=== PATIENT | female | born 1980 | race Caucasian/White ===

== ENCOUNTER 2020-12-03 14:21 | Inpatient (IN) | payer MEDICAID ==
[~2020-12-03] VITALS: Ht 160 cm; Wt 104.5 kg
[2020-12-03] MEDS: LACTATED RINGERS 1,000 ML IV PRN (15:10)
[2020-12-03] MEDS ORDERED: MAGNESIUM SULF. PMX 20GM/500ML 500 ML IV ONE ×2 (15:23→22:56)
[2020-12-03] MEDS ORDERED: BETAMETHASONE 6 MG/ML, 5ML IM SCH (15:30)
[2020-12-03] MEDS ORDERED: MAGNESIUM SULF. PMX 20GM/500ML 500 ML IV SCH (15:30)
[2020-12-03 15:49] LABS: BASOPHILS % (AUTO) 0 % (0-1); EOSINOPHILS % (AUTO) 0 % (1-7); LYMPHOCYTES % (AUTO) 14 % (22-44); MEAN CORPUSCULAR HEMOGLOBIN 27.7 pg (27.0-34.8); MEAN CORPUSCULAR HGB CONC 33.6 g/dL (32.4-35.8); MEAN PLATELET VOLUME 10.6 fL (7.4-10.4); MONOCYTES % (AUTO) 2 % (2-9); NEUTROPHILS % (AUTO) 83 % (42-75); PLATELET COUNT 222 x10^3/uL (130-400); RED BLOOD COUNT 4.61 x10^6/uL (3.82-5.3)
[2020-12-03 16:00] LABS: ALBUMIN 2.8 g/dL (3.4-5.0); ANION GAP 10 mmol/L (5-15); CALCIUM 8.9 mg/dL (8.5-10.1); CHLORIDE 107 mmol/L (98-107); CREATININE 0.56 mg/dL (0.55-1.02)
[2020-12-03 16:03] LABS: ALANINE AMINOTRANSFERASE 23 U/L (12-78); ALKALINE PHOSPHATASE 108 U/L (45-117); BILIRUBIN,TOTAL 0.3 mg/dL (0.2-1.0); TOTAL PROTEIN 7.5 g/dL (6.4-8.2)
[2020-12-03 16:09] LABS: MICROSCOPIC INDICATED
[2020-12-03 16:26] LABS: CREATININE,URINE RANDOM 95.1 mg/dL
[2020-12-03] MEDS ORDERED: ACETAMINOPHEN 325 MG TABLET ONE (18:39)
[2020-12-03] MEDS: ACETAMINOPHEN 325 MG TABLET PO PRN (18:42)
[2020-12-03] MEDS: MAGNESIUM SULF. PMX 20GM/500ML 500 ML IV SCH ×2 (19:20→23:28)
[2020-12-03 20:59] LABS: MICROSCOPIC AUTO
[2020-12-03 21:26] LABS: AMPHETAMINE SCREEN, URINE Negative (Negative); BARBITURATE SCREEN, URINE Negative (Negative); BENZODIAZEPINE SCREEN, URINE Negative (Negative); CANNABINOID SCREEN, URINE Negative (Negative); COCAINE SCREEN, URINE Negative (Negative); METHADONE SCREEN, URINE Negative (Negative); OPIATE SCREEN, URINE Negative (Negative)
[2020-12-04 05:41] LABS: BASOPHILS % (AUTO) 0 % (0-1); EOSINOPHILS % (AUTO) 0 % (1-7); LYMPHOCYTES % (AUTO) 14 % (22-44); MEAN CORPUSCULAR HEMOGLOBIN 26.8 pg (27.0-34.8); MEAN CORPUSCULAR HGB CONC 32.6 g/dL (32.4-35.8); MEAN PLATELET VOLUME 10.8 fL (7.4-10.4); MONOCYTES % (AUTO) 5 % (2-9); NEUTROPHILS % (AUTO) 81 % (42-75); PLATELET COUNT 233 x10^3/uL (130-400); RED BLOOD COUNT 4.37 x10^6/uL (3.82-5.3); RED CELL DISTRIBUTION WIDTH 14.2 % (9.6-15.2)
[2020-12-04 05:47] LABS: ALANINE AMINOTRANSFERASE 23 U/L (12-78); ALBUMIN 2.7 g/dL (3.4-5.0); ANION GAP 10 mmol/L (5-15); CALCIUM 7.7 mg/dL (8.5-10.1); CHLORIDE 106 mmol/L (98-107)
[2020-12-04 05:49] LABS: ALKALINE PHOSPHATASE 98 U/L (45-117); BILIRUBIN,TOTAL 0.2 mg/dL (0.2-1.0); CREATININE 0.62 mg/dL (0.55-1.02); TOTAL PROTEIN 6.9 g/dL (6.4-8.2)
[2020-12-04] MEDS: ACETAMINOPHEN 325 MG TABLET PO PRN ×2 (07:12→12:07)
[2020-12-04] MEDS ORDERED: MAGNESIUM SULF. PMX 20GM/500ML 500 ML IV ONE (07:22)
[2020-12-04] MEDS: MAGNESIUM SULF. PMX 20GM/500ML 500 ML IV SCH ×2 (07:24→15:37)
[2020-12-04] MEDS ORDERED: LABETALOL 100 MG TABLET ONE ×2 (07:51→17:59)
[2020-12-04] MEDS: LABETALOL 100 MG TABLET PO SCH ×2 (08:00→15:40)
[2020-12-04] MEDS ORDERED: NEWBORN KIT ONE (15:54)
[2020-12-04] MEDS ORDERED: METOCLOPRAMIDE 5 MG/ML, 2ML ONE (16:10)
[2020-12-04] MEDS ORDERED: SODIUM CITRATE/CITRIC ACID 15 ML UDC ONE (16:11)
[2020-12-04] MEDS ORDERED: LABETALOL 200 MG TABLET PO SCH (18:00)
[2020-12-04] MEDS ORDERED: LABETALOL 100 MG TABLET PO ONE (18:00)
[2020-12-04] MEDS ORDERED: OXYcodone/APAP 5/325MG TABLET ONE (18:04)
[2020-12-04] MEDS: OXYcodone/APAP 5/325MG TABLET PO PRN (18:07)
[2020-12-05] MEDS: LABETALOL 200 MG TABLET PO SCH ×3 (00:10→16:04)
[2020-12-05] MEDS ORDERED: MAGNESIUM SULF. PMX 20GM/500ML 500 ML IV ONE ×2 (01:40→11:23)
[2020-12-05] MEDS: MAGNESIUM SULF. PMX 20GM/500ML 500 ML IV SCH ×3 (01:42→22:15)
[2020-12-05 06:39] LABS: BASOPHILS % (AUTO) 0 % (0-1); EOSINOPHILS % (AUTO) 0 % (1-7); LYMPHOCYTES % (AUTO) 14 % (22-44); MEAN CORPUSCULAR HEMOGLOBIN 26.7 pg (27.0-34.8); MEAN CORPUSCULAR HGB CONC 32.1 g/dL (32.4-35.8); MEAN PLATELET VOLUME 10.7 fL (7.4-10.4); MONOCYTES % (AUTO) 7 % (2-9); NEUTROPHILS % (AUTO) 79 % (42-75); PLATELET COUNT 245 x10^3/uL (130-400); RED BLOOD COUNT 4.26 x10^6/uL (3.82-5.3); RED CELL DISTRIBUTION WIDTH 14.2 % (9.6-15.2)
[2020-12-05 06:49] LABS: ALANINE AMINOTRANSFERASE 26 U/L (12-78); ALBUMIN 2.5 g/dL (3.4-5.0); ANION GAP 8 mmol/L (5-15); CALCIUM 6.9 mg/dL (8.5-10.1); CHLORIDE 106 mmol/L (98-107); CREATININE 0.53 mg/dL (0.55-1.02)
[2020-12-05 06:52] LABS: ALKALINE PHOSPHATASE 90 U/L (45-117); BILIRUBIN,TOTAL 0.2 mg/dL (0.2-1.0); TOTAL PROTEIN 6.8 g/dL (6.4-8.2)
[2020-12-05] MEDS ORDERED: OXYcodone 5 MG/5 ML ORAL.SOL UDC PO PRN (10:00)
[2020-12-05] MEDS ORDERED: FENTANYL PF 100 MCG/2ML IV PRN (10:00)
[2020-12-05] MEDS ORDERED: ALBUTEROL SULFATE 2.5 MG/3 ML NPPB PRN (10:00)
[2020-12-05] MEDS ORDERED: METOPROLOL 1 MG/ML, 5ML IV PRN (10:00)
[2020-12-05] MEDS ORDERED: LABETALOL 5MG/ML, 20ML IV PRN (10:00)
[2020-12-05] MEDS ORDERED: MIDAZOLAM 1 MG/ML, 2ML IV PRN (10:00)
[2020-12-05] MEDS ORDERED: EPHEDRINE 50 MG/ML, 1ML IVPush PRN (10:00)
[2020-12-05] MEDS ORDERED: ONDANSETRON 2MG/ML, 2ML IVPush PRN (10:00)
[2020-12-05] MEDS ORDERED: PROMETHAZINE 25 MG/ML, 1ML IV PRN (10:00)
[2020-12-05] MEDS ORDERED: HYDROcodone/APAP 7.5-325MG/15ML UDC PO PRN (10:00)
[2020-12-05] MEDS ORDERED: MEPERIDINE/PF 25MG/0.5ML IVPush PRN (10:00)
[2020-12-05] MEDS: LACTATED RINGERS 1,000 ML IV PRN (11:26)
[2020-12-05] MEDS ORDERED: OXYTOCIN 30U/ 0.9% NaCL 500ML 500 ML ONE (12:56)
[2020-12-05] MEDS ORDERED: PHENYLEPHRINE 10 MG/ML ONE (17:10)
[2020-12-05] MEDS ORDERED: OXYTOCIN 10 UNITS/ML, 1ML ONE (17:10)
[2020-12-05] MEDS ORDERED: FENTANYL PF 100 MCG/2ML ONE (17:10)
[2020-12-05] MEDS ORDERED: DEXAMETHASONE 4 MG/ML, 1ML ONE (17:10)
[2020-12-05] MEDS ORDERED: EPHEDRINE 50 MG/ML, 1ML ONE (17:10)
[2020-12-05] MEDS ORDERED: ONDANSETRON 2MG/ML, 2ML ONE (17:10)
[2020-12-05] MEDS ORDERED: KETOROLAC 30 MG/1 ML ONE (17:10)
[2020-12-05] MEDS ORDERED: CEFAZOLIN 1,000 MG ONE (17:10)
[2020-12-05] MEDS ORDERED: LACTATED RINGERS 1,000 ML IVBOLUS ONE (17:30)
[2020-12-05] MEDS ORDERED: SODIUM CITRATE/CITRIC ACID 30 ML UDC PO ONE (17:30)
[2020-12-05] MEDS ORDERED: ONDANSETRON 2MG/ML, 2ML IVPush ONE (17:30)
[2020-12-05] MEDS ORDERED: METOCLOPRAMIDE 5 MG/ML, 2ML IV ONE (17:30)
[2020-12-05] MEDS ORDERED: D5%-0.9% NACL 1,000 ML IV SCH (18:00)
[2020-12-05] MEDS ORDERED: HYDROmorphone 2 MG/ML, 1ML ONE (21:51)
[2020-12-05] MEDS ORDERED: OXYcodone IR 5MG TABLET PO PRN (22:30)
[2020-12-05] MEDS ORDERED: ONDANSETRON 2MG/ML, 2ML IV PRN (22:30)
[2020-12-05] MEDS ORDERED: OXYcodone/APAP 5/325MG TABLET PO PRN (22:30)
[2020-12-05] MEDS ORDERED: MISOPROSTOL 200 MCG TABLET SL PRN (22:30)
[2020-12-05] MEDS ORDERED: LACTATED RINGERS 1,000 ML IV SCH ×2 (22:30)
[2020-12-05] MEDS ORDERED: CARBOPROST TROMETHAMINE 250 MCG/ML, 1ML IM PRN (22:30)
[2020-12-05] MEDS ORDERED: ACETAMINOPHEN 325 MG TABLET PO PRN (22:30)
[2020-12-05] MEDS ORDERED: OXYTOCIN 30U/ 0.9% NaCL 500ML 500 ML IV SCH (22:30)
[2020-12-05] MEDS: hydrALAzine 20 MG/ML, 1ML IV PRN ×2 (23:26→23:52)
[2020-12-05] MEDS: HYDROmorphone 2 MG/ML, 1ML IVPush PRN ×2 (23:26→23:43)
[2020-12-06] MEDS: hydrALAzine 20 MG/ML, 1ML IV PRN (00:16)
[2020-12-06 00:25] LABS: BASOPHILS % (AUTO) 0 % (0-1); EOSINOPHILS % (AUTO) 0 % (1-7); LYMPHOCYTES % (AUTO) 8 % (22-44); MEAN CORPUSCULAR HEMOGLOBIN 26.5 pg (27.0-34.8); MEAN CORPUSCULAR HGB CONC 31.6 g/dL (32.4-35.8); MEAN PLATELET VOLUME 10.7 fL (7.4-10.4); MONOCYTES % (AUTO) 6 % (2-9); NEUTROPHILS % (AUTO) 86 % (42-75); PLATELET COUNT 194 x10^3/uL (130-400); RED CELL DISTRIBUTION WIDTH 14.2 % (9.6-15.2)
[2020-12-06] MEDS: LABETALOL 200 MG TABLET PO SCH ×8 (00:43→23:54)
[2020-12-06 05:31] LABS: CHLORIDE 103 mmol/L (98-107)
[2020-12-06 06:22] LABS: ALANINE AMINOTRANSFERASE 26 U/L (12-78); ALBUMIN 2.4 g/dL (3.4-5.0); ALKALINE PHOSPHATASE 86 U/L (45-117); ANION GAP 7 mmol/L (5-15); BILIRUBIN,TOTAL 0.2 mg/dL (0.2-1.0); CALCIUM 6.8 mg/dL (8.5-10.1); CREATININE 0.48 mg/dL (0.55-1.02); TOTAL PROTEIN 6.5 g/dL (6.4-8.2)
[2020-12-06 06:24] LABS: BASOPHILS % (AUTO) 0 % (0-1); EOSINOPHILS % (AUTO) 0 % (1-7); LYMPHOCYTES % (AUTO) 11 % (22-44); MEAN CORPUSCULAR HEMOGLOBIN 26.6 pg (27.0-34.8); MEAN CORPUSCULAR HGB CONC 31.9 g/dL (32.4-35.8); MEAN PLATELET VOLUME 10.3 fL (7.4-10.4); MONOCYTES % (AUTO) 10 % (2-9); NEUTROPHILS % (AUTO) 80 % (42-75); PLATELET COUNT 231 x10^3/uL (130-400); RED BLOOD COUNT 4.25 x10^6/uL (3.82-5.3); RED CELL DISTRIBUTION WIDTH 14.2 % (9.6-15.2)
[2020-12-06] MEDS ORDERED: IBUPROFEN 600 MG TABLET ONE (06:42)
[2020-12-06] MEDS: IBUPROFEN 600 MG TABLET PO PRN ×3 (06:43→21:59)
[2020-12-06] MEDS: MAGNESIUM SULF. PMX 20GM/500ML 500 ML IV SCH ×2 (07:58→18:41)
[2020-12-06] MEDS: PRENATAL VIT/IRON/FA 1 EACH TABLET PO SCH (09:00)
[2020-12-06] MEDS: OXYcodone/APAP 5/325MG TABLET PO PRN ×2 (16:04→23:54)
[2020-12-06] MEDS ORDERED: hydrALAzine 20 MG/ML, 1ML IV ONE (17:00)
[2020-12-06] MEDS: SIMETHICONE 80 MG CHEW TAB PO PRN (21:59)
[2020-12-06] MEDS: DOCUSATE 100 MG CAPSULE PO PRN (22:38)
[2020-12-06 23:51] VITALS: BP 130/79
[2020-12-07 03:48] VITALS: BP_SYST 156; BP_SYST 168; BP_DIAS 108; BP_DIAS 98
[2020-12-07] MEDS: IBUPROFEN 600 MG TABLET PO PRN ×2 (03:53→19:40)
[2020-12-07] MEDS: SIMETHICONE 80 MG CHEW TAB PO PRN (03:53)
[2020-12-07] MEDS: OXYcodone/APAP 5/325MG TABLET PO PRN (06:00)
[2020-12-07 07:26] LABS: BASOPHILS % (AUTO) 0 % (0-1); EOSINOPHILS % (AUTO) 0 % (1-7); LYMPHOCYTES % (AUTO) 20 % (22-44); MEAN CORPUSCULAR HEMOGLOBIN 27.3 pg (27.0-34.8); MEAN CORPUSCULAR HGB CONC 32.8 g/dL (32.4-35.8); MEAN PLATELET VOLUME 10.2 fL (7.4-10.4); MONOCYTES % (AUTO) 11 % (2-9); NEUTROPHILS % (AUTO) 68 % (42-75); PLATELET COUNT 205 x10^3/uL (130-400); RED CELL DISTRIBUTION WIDTH 14.2 % (9.6-15.2)
[2020-12-07 07:38] LABS: ALANINE AMINOTRANSFERASE 22 U/L (12-78); ALBUMIN 2.1 g/dL (3.4-5.0); ANION GAP 6 mmol/L (5-15); CALCIUM 7.5 mg/dL (8.5-10.1); CHLORIDE 110 mmol/L (98-107); CREATININE 0.52 mg/dL (0.55-1.02)
[2020-12-07 07:40] LABS: ALKALINE PHOSPHATASE 74 U/L (45-117); BILIRUBIN,TOTAL 0.3 mg/dL (0.2-1.0); TOTAL PROTEIN 5.7 g/dL (6.4-8.2)
[2020-12-07 07:55] VITALS: BP 173/100
[2020-12-07] MEDS ORDERED: LABETALOL 200 MG TABLET PO SCH ×2 (08:00)
[2020-12-07] MEDS: PRENATAL VIT/IRON/FA 1 EACH TABLET PO SCH (08:12)
[2020-12-07] MEDS: DOCUSATE 100 MG CAPSULE PO PRN (08:12)
[2020-12-07] MEDS ORDERED: hydrALAzine 20 MG/ML, 1ML ONE ×2 (08:25→21:27)
[2020-12-07] MEDS ORDERED: hydrALAzine 20 MG/ML, 1ML IV ONE ×2 (08:30→21:30)
[2020-12-07] MEDS ORDERED: LABETALOL 100 MG TABLET PO ONE (08:30)
[2020-12-07 10:34] LABS: BASOPHILS % (AUTO) 0 % (0-1); EOSINOPHILS % (AUTO) 0 % (1-7); LYMPHOCYTES % (AUTO) 19 % (22-44); MEAN CORPUSCULAR HEMOGLOBIN 26.8 pg (27.0-34.8); MEAN CORPUSCULAR HGB CONC 32.3 g/dL (32.4-35.8); MEAN PLATELET VOLUME 10.4 fL (7.4-10.4); MONOCYTES % (AUTO) 12 % (2-9); NEUTROPHILS % (AUTO) 68 % (42-75); PLATELET COUNT 188 x10^3/uL (130-400); RED BLOOD COUNT 4.06 x10^6/uL (3.82-5.3); RED CELL DISTRIBUTION WIDTH 14.5 % (9.6-15.2)
[2020-12-07 10:44] LABS: ALANINE AMINOTRANSFERASE 24 U/L (12-78); ALBUMIN 2.2 g/dL (3.4-5.0); ANION GAP 8 mmol/L (5-15); CALCIUM 8.5 mg/dL (8.5-10.1); CHLORIDE 109 mmol/L (98-107); CREATININE 0.48 mg/dL (0.55-1.02)
[2020-12-07 10:47] LABS: ALKALINE PHOSPHATASE 81 U/L (45-117); BILIRUBIN,TOTAL 0.2 mg/dL (0.2-1.0); TOTAL PROTEIN 6.1 g/dL (6.4-8.2)
[2020-12-07] MEDS ORDERED: DIPHENHYDRAMINE 25 MG CAPSULE PO STA (11:36)
[2020-12-07] MEDS ORDERED: DIPHENHYDRAMINE 25 MG CAPSULE ONE (11:36)
[2020-12-07] MEDS: LABETALOL 300 MG TABLET PO SCH ×2 (14:00→21:11)
[2020-12-07 22:05] VITALS: BP 154/90
[2020-12-07] MEDS ORDERED: MAGNESIUM SULF. PMX 20GM/500ML 500 ML IV ONE (22:23)
[2020-12-07] MEDS ORDERED: MAGNESIUM SULFATE PMX 4GM/100M 100 ML IVPB ONE (22:30)
[2020-12-07] MEDS: MAGNESIUM SULF. PMX 20GM/500ML 500 ML IV SCH (23:23)
[2020-12-08] MEDS: ACETAMINOPHEN 325 MG TABLET PO PRN (04:20)
[2020-12-08] MEDS: LABETALOL 300 MG TABLET PO SCH ×3 (05:34→22:00)
[2020-12-08 06:18] LABS: BASOPHILS % (AUTO) 0 % (0-1); EOSINOPHILS % (AUTO) 1 % (1-7); LYMPHOCYTES % (AUTO) 22 % (22-44); MEAN CORPUSCULAR HEMOGLOBIN 27.4 pg (27.0-34.8); MEAN CORPUSCULAR HGB CONC 32.8 g/dL (32.4-35.8); MEAN PLATELET VOLUME 10.5 fL (7.4-10.4); MONOCYTES % (AUTO) 11 % (2-9); NEUTROPHILS % (AUTO) 66 % (42-75); PLATELET COUNT 221 x10^3/uL (130-400); RED BLOOD COUNT 4.22 x10^6/uL (3.82-5.3); RED CELL DISTRIBUTION WIDTH 14.4 % (9.6-15.2)
[2020-12-08 06:34] LABS: CHLORIDE 105 mmol/L (98-107)
[2020-12-08 06:59] LABS: ALANINE AMINOTRANSFERASE 29 U/L (12-78); ALBUMIN 2.3 g/dL (3.4-5.0); ALKALINE PHOSPHATASE 86 U/L (45-117); ANION GAP 10 mmol/L (5-15); BILIRUBIN,TOTAL 0.3 mg/dL (0.2-1.0); CALCIUM 8.1 mg/dL (8.5-10.1); TOTAL PROTEIN 6.6 g/dL (6.4-8.2)
[2020-12-08] MEDS: PRENATAL VIT/IRON/FA 1 EACH TABLET PO SCH (08:40)
[2020-12-08] MEDS: IBUPROFEN 600 MG TABLET PO PRN ×2 (08:40→20:33)
[2020-12-08] MEDS: MAGNESIUM SULF. PMX 20GM/500ML 500 ML IV SCH (10:10)
[2020-12-09] MEDS ORDERED: hydrALAzine 20 MG/ML, 1ML IV ONE
[2020-12-09 05:41] LABS: BASOPHILS % (AUTO) 0 % (0-1); EOSINOPHILS % (AUTO) 2 % (1-7); LYMPHOCYTES % (AUTO) 24 % (22-44); MEAN CORPUSCULAR HEMOGLOBIN 27.5 pg (27.0-34.8); MEAN CORPUSCULAR HGB CONC 32.9 g/dL (32.4-35.8); MEAN PLATELET VOLUME 10.6 fL (7.4-10.4); MONOCYTES % (AUTO) 9 % (2-9); NEUTROPHILS % (AUTO) 64 % (42-75); PLATELET COUNT 231 x10^3/uL (130-400); RED BLOOD COUNT 3.94 x10^6/uL (3.82-5.3); RED CELL DISTRIBUTION WIDTH 14.5 % (9.6-15.2)
[2020-12-09] MEDS: LABETALOL 200 MG TABLET PO SCH ×3 (05:51→21:59)
[2020-12-09 05:54] LABS: CHLORIDE 109 mmol/L (98-107)
[2020-12-09 06:03] LABS: ALANINE AMINOTRANSFERASE 35 U/L (12-78); ALBUMIN 2.2 g/dL (3.4-5.0); ALKALINE PHOSPHATASE 82 U/L (45-117); ANION GAP 6 mmol/L (5-15); BILIRUBIN,TOTAL 0.3 mg/dL (0.2-1.0); CALCIUM 8.7 mg/dL (8.5-10.1); CREATININE 0.48 mg/dL (0.55-1.02); TOTAL PROTEIN 6.3 g/dL (6.4-8.2)
[2020-12-09] MEDS: PRENATAL VIT/IRON/FA 1 EACH TABLET PO SCH (09:30)
[2020-12-09] MEDS ORDERED: DIPHENHYDRAMINE 25 MG CAPSULE ONE (20:49)
[2020-12-09] MEDS ORDERED: DIPHENHYDRAMINE 25 MG CAPSULE PO ONE (21:00)
[2020-12-09] MEDS ORDERED: hydrALAzine 20 MG/ML, 1ML ONE (22:13)
[2020-12-09] MEDS ORDERED: niFEDipine ER 30 MG TABLET.ER ONE (23:13)
[2020-12-09] MEDS: niFEDipine ER 30 MG TABLET.ER PO SCH (23:16)
[2020-12-10] MEDS: LABETALOL 200 MG TABLET PO SCH ×2 (06:04→13:58)
[2020-12-10] MEDS: PRENATAL VIT/IRON/FA 1 EACH TABLET PO SCH (08:13)
[2020-12-10 08:20] VITALS: BP 125/81
[2020-12-10 10:40] VITALS: BP 138/87
[2020-12-10 14:01] VITALS: BP 120/80
[2020-12-10 19:30] VITALS: BP 138/90
[2020-12-10] MEDS: ACETAMINOPHEN 325 MG TABLET PO PRN (21:54)
[2020-12-10] MEDS: LABETALOL 100 MG TABLET PO SCH (21:55)
[2020-12-11] VITALS (7 sets, daily range): BP systolic 118–143; BP diastolic 71–88
[2020-12-11 05:33] LABS: BASOPHILS % (AUTO) 1 % (0-1); EOSINOPHILS % (AUTO) 3 % (1-7); LYMPHOCYTES % (AUTO) 30 % (22-44); MEAN CORPUSCULAR HEMOGLOBIN 27.3 pg (27.0-34.8); MEAN CORPUSCULAR HGB CONC 32.6 g/dL (32.4-35.8); MEAN PLATELET VOLUME 10.2 fL (7.4-10.4); MONOCYTES % (AUTO) 10 % (2-9); NEUTROPHILS % (AUTO) 56 % (42-75); PLATELET COUNT 235 x10^3/uL (130-400); RED BLOOD COUNT 4.31 x10^6/uL (3.82-5.3); RED CELL DISTRIBUTION WIDTH 14.6 % (9.6-15.2)
[2020-12-11 05:47] LABS: ALANINE AMINOTRANSFERASE 34 U/L (12-78); ALBUMIN 2.6 g/dL (3.4-5.0); ANION GAP 2 mmol/L (5-15); CALCIUM 8.9 mg/dL (8.5-10.1); CHLORIDE 111 mmol/L (98-107); CREATININE 0.37 mg/dL (0.55-1.02)
[2020-12-11 05:49] LABS: ALKALINE PHOSPHATASE 84 U/L (45-117); BILIRUBIN,TOTAL 0.3 mg/dL (0.2-1.0); TOTAL PROTEIN 6.6 g/dL (6.4-8.2)
[2020-12-11] MEDS: LABETALOL 100 MG TABLET PO SCH ×3 (06:01→21:59)
[2020-12-11] MEDS: PRENATAL VIT/IRON/FA 1 EACH TABLET PO SCH (08:52)
[2020-12-11] MEDS: niFEDipine ER 30 MG TABLET.ER PO SCH (09:00)
[2020-12-11] MEDS: DOCUSATE 100 MG CAPSULE PO PRN (09:05)
[2020-12-12 00:27] VITALS: BP 107/71
[2020-12-12 04:04] VITALS: BP 140/97
[2020-12-12 05:50] VITALS: BP 130/79
[2020-12-12] MEDS: LABETALOL 100 MG TABLET PO SCH (06:03)
[2020-12-12] MEDS ORDERED: NIFE30TA2 PO (07:37)
[2020-12-12] MEDS ORDERED: LABE300T2 PO (07:39)
[2020-12-12 07:55] VITALS: BP 133/91
[2020-12-12] MEDS: niFEDipine ER 30 MG TABLET.ER PO SCH (09:05)
[2020-12-12] MEDS: PRENATAL VIT/IRON/FA 1 EACH TABLET PO SCH (09:05)
== END 2020-12-12 10:00 | disposition home or self-care (01) | DRG 539 ==
LOC: LDIP 15:12 → 2NE 12-06 02:01 → 2NW 12-06 22:36 → 2NE 12-07 08:28 → 2NW 12-11 03:32
PROVIDERS: ADMIT Obstetrics & Gynecology Maternal & Fetal Medicine; ATTEND Obstetrics & Gynecology Maternal & Fetal Medicine
PROC: 10D00Z1 Extraction of Products of Conception, Low, Open Approach (ICD-10-PCS; principal; 2020-12-05)
PROC: 0UB70ZZ Excision of Bilateral Fallopian Tubes, Open Approach (ICD-10-PCS; 2020-12-05)
DX: O99.214 Obesity complicating childbirth (principal); E66.01 Morbid (severe) obesity due to excess calories; O14.94 Unspecified pre-eclampsia, complicating childbirth; O24.429 Gestational diabetes mellitus in childbirth, unspecified control; O34.211 Maternal care for low transverse scar from previous cesarean delivery; O16.4 Unspecified maternal hypertension, complicating childbirth; Z20.822 Contact with and (suspected) exposure to COVID-19; Z3A.33 33 weeks gestation of pregnancy; Z37.0 Single live birth; Z30.2 Encounter for sterilization; Z90.49 Acquired absence of other specified parts of digestive tract; Z98.84 Bariatric surgery status
CPT/HCPCS: 36415; J7042; 76770; 80053; 80307; 81001; 82570; 82962; 83036; 83615; 83735; 84156; 84550; 85025; 86592; 86850; 86900; 86923; 87081; 87086; 87635; 88302; 88307; G0378; J0690; J0702; J1100; J1170; J1885; J2405; J3010; J0360; J2370; J2590; J2765; J3475; J7120; Q0163